=== PATIENT | male | born 1945 | race Caucasian/White ===

== ENCOUNTER → 2019-11-13 | Outpatient (CLI) | payer OTHER | LOC: SJCVC 13:02 | PROVIDERS: ATTEND Internal Medicine | DX: G45.9 Transient cerebral ischemic attack, unspecified (principal); I10 Essential (primary) hypertension; E78.5 Hyperlipidemia, unspecified; Z79.899 Other long term (current) drug therapy; Z87.891 Personal history of nicotine dependence ==

== ENCOUNTER → 2020-04-03 | Outpatient (CLI) | payer OTHER | LOC: LAB 07:38 | PROVIDERS: ATTEND Family Medicine | DX: R09.81 Nasal congestion (principal); Z20.822 Contact with and (suspected) exposure to COVID-19 ==

== ENCOUNTER → 2020-04-22 | Outpatient (CLI) | payer OTHER | LOC: LAB 13:46 | PROVIDERS: ATTEND Family Medicine | DX: R09.81 Nasal congestion (principal); R43.9 Unspecified disturbances of smell and taste; Z20.822 Contact with and (suspected) exposure to COVID-19 ==